=== PATIENT | male | born 1975 | race Caucasian/White ===

== ENCOUNTER 2016-09-17 10:55 | Emergency (ER) | payer MEDICAID | END 2016-09-17 12:00 | disposition home or self-care (01) | LOC: D.ER 10:55 | DX: R68.84 Jaw pain (principal); F17.200 Nicotine dependence, unspecified, uncomplicated; J02.9 Acute pharyngitis, unspecified; R11.0 Nausea ==

== ENCOUNTER 2017-07-18 13:31 | Emergency (ER) | payer MEDICAID | END 2017-07-18 15:23 | disposition home or self-care (01) | LOC: D.ER 13:31 | DX: F41.9 Anxiety disorder, unspecified (principal) ==